=== PATIENT | female | born 1980 ===

== ENCOUNTER 2016-07-16 08:28 | Inpatient (IN) | payer BC ==
[2016-07-13 12:07] VITALS: BMI 37.1
[2016-07-16] MEDS ORDERED: Lactated Ringer's 1,000 ML IV ONE ×6 (08:40→17:20)
[2016-07-16] MEDS ORDERED: Bupivacaine 0.5% Inj(30mL) ONE (11:21)
[2016-07-16] MEDS ORDERED: Midazolam 2 MG/2 ML VIAL ONE (11:33)
[2016-07-16] MEDS ORDERED: Propofol 10 mg/ml Inj (20 ML) ONE ×2 (11:33→12:06)
[2016-07-16] MEDS ORDERED: ePHEDrine 50 mg/ml Inj ONE (11:33)
[2016-07-16] MEDS ORDERED: Rocuronium 10 mg/ml (5 ml) ONE ×2 (11:34→13:11)
[2016-07-16] MEDS ORDERED: Succinylcholine 200 mg/10 ml Inj IV ONE (11:36)
[2016-07-16] MEDS ORDERED: Bupivacaine 0.5% 50 ML IJ ONE (12:15)
[2016-07-16] MEDS ORDERED: Dexamethasone 4 mg/1 ml ONE (12:22)
[2016-07-16] MEDS ORDERED: Neostigmine Methylsulfate 2 MG/2 ML ML IV ONE (14:09)
[2016-07-16] MEDS ORDERED: Lactated Ringer's 1,000 ML IV SCH ×2 (14:46→14:52)
[2016-07-16] MEDS ORDERED: HYDROmorphone 0.5 mg/0.5 ml ISec IVP PRN (14:52)
[2016-07-16] MEDS ORDERED: Naloxone 0.4 mg/ml Inj (Adult) IVP PRN (14:53)
--- NOTE | 2016-07-16 15:26 | OP ---
PROCEDURE DATE: 07/16/2016 PREOPERATIVE DIAGNOSES: Symptomatic fibroid uterus, menorrhagia, pelvic pain. POSTOPERATIVE DIAGNOSES: Symptomatic fibroid uterus, menorrhagia, pelvic pain. OPERATION PERFORMED: Robotic-assisted hysterectomy, bilateral salpingectomy. SURGEON: Dr. Esmer Wagner. [employer]: Dr. Dandre Leiva. ANESTHESIA: General, administered by Dr. Corona. ESTIMATED BLOOD LOSS: 200 mL. URINE OUTPUT: Stewart catheter put out approximately 1700 mL of clear urine. FLUIDS: The patient received approximately 2300 mL of D5 LR intraoperatively. OPERATIVE FINDINGS: A large 16 week sized uterus with irregular contour, multiple myomas, normal ova jose alejandro and tubes. COMMENTS: Toward the end of the operation, once the majority of the dissection had been completed, t he operating room table malfunctioned the table lowered spontaneously. At that point, the instrument s were removed from the abdomen. The robot was undocked and the procedure was converted to a laparot bettye. Dr. Leiva was the telecom assistant for the procedure. He was instrumental in the care of the patient. T he procedure would not been possible without his help. He was helpful in assisting in retraction, cr eating exposure and obtaining hemostasis. PROCEDURE: After informed consent was obtained, the patient was taken to the operating room where e was given general anesthesia. She was then prepped and draped in the usual sterile fashion. A hilton ghted speculum was inserted in the vagina. Cervix was visualized, grasped with single tooth tenaculu m. Cervix was then gently dilated and VCare uterine manipulator was inserted into the uterine cavity . Attention was then turned to the urethra where a Stewart catheter was inserted to monitor the patien t's urinary output. Attention was then turned to the abdomen where Marcaine was infused approximatel y 4 cm superior to the umbilicus and an 8 mm incision was made. The abdomen was then tented upward a nd a Veress needle was introduced into the abdominal cavity. Placement was confirmed with a fluid-fi lled syringe. An 8 mm robotic port was introduced under direct visualization, introduced into the ab domen and placement was confirmed with the laparoscope. Attention was then turned to 20 cm right and lateral to the umbilicus. An 8 mm incision was made and an 8 mm robotic port was introduced into e abdominal cavity under direct visualization. A similar procedure was performed approximately 10 cm right and lateral to the umbilicus. Attention was then turned to the left side, approximately 20 cm left and lateral. Marcaine was infused. An 8 mm incision was made and an 8 mm robotic port was int roduced under direct visualization. An telecom assistant port was placed approximately 10 cm left and latera l to the umbilicus. The instruments used for the surgery where a PK dissector, Luke SutureCut, sciss or, ProGrasp. The patient was then placed in steep Trendelenburg. The table was lowered and the armin ot was docked without complication. I then proceeded to break scrub and proceeded to the surgical co nsole. Attention was then placed to the right round ligament, which was serially coagulated and montes de oca sected with the scissor. The uteroovarian ligament was then identified, serially coagulated and montes de oca sected with the scissor. The vesicouterine peritoneum was then undermined using the PK dissector pam n to the level of the VCare cup anteriorly. The uterine arteries were skeletonized. The ureter was identified below and then uterine arteries were serially coagulated. Attention was then turned to th e right side of the uterus where the round ligament was serially coagulated and transected with the s cissor. The uteroovarian ligament was then serially coagulated and transected with the scissor. The vesicouterine peritoneum was undermined with the PK dissector anteriorly down to the level of the VC are cup. The uterine arteries were then skeletonized laterally and serially coagulated with the PK d issector. The operating room table then lowered itself and was malfunctioning. The case was termina massimo at that point. All instruments were removed from the abdomen. A minilaparotomy incision was mad e. The uterus was identified. An anterior myoma was enucleated to help create additional exposure. Two Britney clamps were brought across the vaginal cuff and the uterus and cervix were amputated from the vagina. The vaginal cuff was closed with an 0 Vicryl in a running fashion. The abdomen was the n copiously irrigated. The irrigant was removed with a suction device. Hemostasis was noted. The p eritoneum was closed with 2-0 Vicryl in a running fashion. The muscle was reapproximated with 0 Vicr yl in an interrupted fashion. The fascia was closed with 0 Vicryl in a running fashion. The skin wa s closed with 4-0 on a Oziel needle. The robotic port sites were closed with Dermabond. All sponge, lap, needle, and instrument counts were correct x 2, and the patient was taken to recovery room in a wake and stable condition. Paola Wagner MD cc: [phone] TT: 07/16/2016 15:25:58 [email or web address]
[2016-07-16] MEDS ORDERED: HYDROmorphone 0.5 mg/0.5 ml ISec IVP ONE ×2 (15:30→15:45)
[2016-07-16] MEDS: cefOXitin Sodium 1 GM in Dextrose 5% In Water 50 ML IVPB SCH (15:40)
[2016-07-17] MEDS: cefOXitin Sodium 1 GM in Dextrose 5% In Water 50 ML IVPB SCH ×2 (00:03→12:25)
--- NOTE | 2016-07-17 08:26 | CP.PCM.PN ---
Subjective - Date & Time of Evaluation Date of Evaluation: 07/17/16 Time of Evaluation: 08:28 - Subjective Subjective: Pt has no c/o, tolerating regular diet. Objective - Vital Signs/Intake and Output Vital Signs (last 24 hours): Temp Pulse Resp BP Pulse Ox 98.2 F 99 H 18 100/61 96 07/17/16 07:35 07/17/16 07:35 07/17/16 07:35 07/17/16 07:35 07/17/16 07:35 - Medications Medications: Current Medications Hydromorphone HCl (Dilaudid) 0.5 mg IVP Q10M PRN PRN Reason: Pain, moderate (4-7) Last Admin: 07/16/16 15:20 Dose: 0.5 mg Hydromorphone HCl (Dilaudid 0.2 Mg/Ml Triple Valve Tester) 0 mg IV PRN PRN; Protocol PRN Reason: Pain, moderate (4-7) Last Admin: 07/16/16 15:46 Dose: 0 mg Lactated Ringer's (Lactated Ringer's) 1,000 mls @ 125 mls/hr IV .Q8H FAUSTINO Cefoxitin Sodium 1 gm/ (Dextrose) 50 mls @ 50 mls/hr IVPB Q8 FAUSTINO Last Admin: 07/17/16 00:03 Dose: 50 mls/hr Lactated Ringer's (Lactated Ringer's) 1,000 mls @ 125 mls/hr IV .Q8H FAUSTINO Naloxone HCl (Narcan) 0.1 mg IVP Q2M PRN PRN Reason: Opiate reversal Ondansetron HCl (Zofran Inj) 4 mg IVP ONCE PRN PRN Reason: Nausea/Vomiting - Constitutional Appears: Well, Non-toxic - GI/Abdominal Exam Additional comments: sost, appropriately tender, bandage over pfannenstiel changed and bandage on pt 's far right changed due to serosanguinous drainage - Extremities Exam Additional comments: NT Assessment and Plan - Assessment and Plan (Free Text) Assessment: POD 1 s/p Attempted Robotic hysterectomy, b/l salpingectomy converted to open hysterectomy Pt doing well Discontinue MANAGER ADULT and ward Will start PO pain meds OOB today
[2016-07-17] MEDS ORDERED: Oxycodone/Acetaminophen 5/325 mg Tab PO PRN ×2 (08:30→08:31)
[2016-07-17 09:34] LABS: HEMATOCRIT 31.3 % (34.0-47.0); MEAN CELL VOLUME 79.4 fl (81.0-99.0); MEAN CORPUSCULAR HEMOGLOBIN 26.8 pg (27.0-31.0); MEAN CORPUSCULAR HGB CONC 33.7 g/dL (33.0-37.0); RED CELL DISTRIBUTION WIDTH 14.7 % (11.5-14.5); WHITE BLOOD COUNT 12.5 K/uL (4.8-10.8)
[2016-07-17] MEDS: cefOXitin Sodium 1 GM in Sodium Chloride 0.9% 100 ML IVPB SCH (16:20)
[2016-07-17 23:21] VITALS: RESP 20
[2016-07-18 00:30] VITALS: TEMP 98.4
[2016-07-18] MEDS: cefOXitin Sodium 1 GM in Sodium Chloride 0.9% 100 ML IVPB SCH ×2 (00:36→08:46)
[2016-07-18 07:46] VITALS: BP 110/71; PULSE 82; O2SAT 96
--- NOTE | 2016-07-18 08:42 | CP.PCM.PN ---
Subjective - Date & Time of Evaluation Date of Evaluation: 07/18/16 Time of Evaluation: 08:40 - Subjective Subjective: Pt reports right shoulder pain. Pt tolerating regular diet, passed gas, ambulating, denies BM. Objective - Vital Signs/Intake and Output Vital Signs (last 24 hours): Temp Pulse Resp BP Pulse Ox 98.4 F 82 20 110/71 96 07/18/16 07:54 07/18/16 07:54 07/18/16 07:54 07/18/16 07:54 07/18/16 07:54 - Medications Medications: Current Medications Hydromorphone HCl (Dilaudid) 0.5 mg IVP Q10M PRN PRN Reason: Pain, moderate (4-7) Last Admin: 07/16/16 15:20 Dose: 0.5 mg Cefoxitin Sodium 1 gm/ Sodium (Chloride) 100 mls @ 100 mls/hr IVPB Q8 FAUSTINO Last Admin: 07/18/16 00:36 Dose: 100 mls/hr Ibuprofen (Motrin Tab) 600 mg PO Q6 PRN PRN Reason: pain 1-3 Last Admin: 07/17/16 12:22 Dose: 600 mg Naloxone HCl (Narcan) 0.1 mg IVP Q2M PRN PRN Reason: Opiate reversal Ondansetron HCl (Zofran Inj) 4 mg IVP ONCE PRN PRN Reason: Nausea/Vomiting Oxycodone/Acetaminophen (Percocet 5/325 Mg Tab) 1 tab PO Q4 PRN PRN Reason: pain 4-7 Stop: 07/20/16 08:31 Oxycodone/Acetaminophen (Percocet 5/325 Mg Tab) 2 tab PO Q4 PRN PRN Reason: pain 8-10 Stop: 07/20/16 08:32 Tramadol HCl (Ultram) 50 mg PO Q6 PRN PRN Reason: Pain, moderate (4-7) Last Admin: 07/17/16 21:11 Dose: 50 mg - Labs Labs: 07/17/16 08:00 - Constitutional Appears: Well, No Acute Distress - GI/Abdominal Exam GI & Abdominal Exam: Normal Bowel Sounds Additional comments: soft, incisions intact, no drainage, no erythema - Extremities Exam Additional comments: NT - Neurological Exam Neurological Exam: Alert, Altered, Awake Assessment and Plan - Assessment and Plan (Free Text) Assessment: POD 2 s/p Robotic-assisted hysterectomy,b/l salpingectomy converted to an open hysterectomy Pt is doing well Rx's motrin, tramadol, and colace in chart Discharge home today, to follow up next week w/ Dr. Wagner
== END 2016-07-18 11:00 | disposition home or self-care (01) | DRG 743 ==
LOC: H.OPSURG 08:28 → H.MEDSURG1 14:46
PROVIDERS: ADMIT Obstetrics & Gynecology Gynecology; ATTEND Obstetrics & Gynecology Gynecology
PROC: 0UT90ZZ Resection of Uterus, Open Approach (ICD-10-PCS; 2016-07-16)
PROC: 0UJD4ZZ Inspection of Uterus and Cervix, Percutaneous Endoscopic Approach (ICD-10-PCS; 2016-07-16)
PROC: 8E0W4CZ Robotic Assisted Procedure of Trunk Region, Percutaneous Endoscopic Approach (ICD-10-PCS; 2016-07-16)
PROC: 0UT7FZZ Resection of Bilateral Fallopian Tubes, Via Natural or Artificial Opening With Percutaneous Endoscopic Assistance (ICD-10-PCS; principal; 2016-07-16 10:45)
DX: D25.9 Leiomyoma of uterus, unspecified (principal); N92.0 Excessive and frequent menstruation with regular cycle